=== PATIENT | female | born 1965 | race American Indian/Alaskan Native ===

== ENCOUNTER 2020-07-03 17:19 | Emergency (ER) | payer BC ==
[~2020-07-03] VITALS: Ht 157.5 cm; Wt 79.4 kg
--- NOTE | 2020-07-03 17:19 | NUR ---
PTLEFT SIDED CHEST PAIN RADIATING TO LEFT ARM SINCE 1499. PT IS AAOX4, NOT IN RESPIRATORY DISTRESS, HOOKED TO [facility], KEPT RESTED AND COMFORTABLE. WILL CONTINUE TO MONITOR.
--- NOTE | 2020-07-03 17:35 | NUR ---
IV LINE ESTABLISHED BLOOD DRAWN AND SENT TO LAB.
[2020-07-03 17:51] LABS: BASOPHILS % (AUTO) 0.4 % (0.0-2.0); EOSINOPHILS % (AUTO) 0.8 % (0.0-6.0); HEMATOCRIT 42 % (33-45); HEMOGLOBIN 14.4 g/dL (11.5-14.8); LYMPHOCYTES # (AUTO) 1.2 /CMM (0.8-4.8); LYMPHOCYTES % (AUTO) 13.4 % (20.0-44.0); MEAN CORPUSCULAR HGB CONC 35 g/dl (31.0-36.0); MEAN CORPUSCULAR VOLUME 88 fL (82-100); MONOCYTES # (AUTO) 0.6 /CMM (0.1-1.30); MONOCYTES % (AUTO) 6.4 % (2.0-12.0); PLATELET COUNT (AUTO) 288 /CMM (150-450); RED BLOOD CELL COUNT(AUTO) 4.74 MIL/uL (4.0-5.2); WHITE BLOOD COUNT (AUTO) 8.9 K/uL (4.3-11.0)
--- NOTE | 2020-07-03 18:24 | NUR ---
URINE SAMPLE COLLECTED AND SENT TO LAB
[2020-07-03 18:38] LABS: BILIRUBIN,URINE Negative (NEGATIVE); COLOR,URINE YELLOW (YELLOW); LEUKOCYTE ESTERASE ,URINE Negative (NEGATIVE); NITRITE, URINE Negative (NEGATIVE); PH,URINE 5.5 (5.0-8.0); PROTEIN,URINE Negative (NEGATIVE); UGLUCOSE Negative (NEGATIVE); UROBILINOGEN,URINE 0.2 EU/dL (0.2)
[2020-07-03 18:44] LABS: BACTERIA,URINE Few /HPF (None Seen); SQUAMOUS EPITHELIAL CELL,UR Few /HPF (None Seen); WBC,URINE 0-2 /HPF (0-3)
[2020-07-03 18:55] LABS: ALBUMIN 4.4 g/dL (3.4-5.0); BILIRUBIN,TOTAL 0.4 mg/dL (0.2-1.0)
[2020-07-03 18:56] LABS: CALCIUM, SERUM 9.1 mg/dL (8.5-10.1); CARBON DIOXIDE 27 mmol/L (21-32); CHLORIDE 100 mmol/L (98-107); GLUCOSE 134 mg/dL (74-106); POTASSIUM 3.6 mmol/L (3.5-5.1); SODIUM SERUM 136 mmol/L (136-145)
[2020-07-03 18:57] LABS: CREATININE 1.1 mg/dL (0.6-1.3); UREA NITROGEN, BLOOD 22 mg/dL (7-18)
--- NOTE | 2020-07-03 19:27 | NUR ---
REPORT GIVEN TO EKATERINA HESS FOR CRISTIN.
--- NOTE | 2020-07-03 19:47 | NUR ---
PT RESTING COMFORTABLY. VSS. DENIES CP AT THIS TIME. WILL CONTINUE TO MONITOR.
--- NOTE | 2020-07-03 21:16 | NUR ---
IV removed. Catheter intact and site benign. Pressure and 4x4 applied to site. No bleeding noted.
[2020-07-03 21:17] VITALS: BP 129/82
--- NOTE | 2020-07-03 21:17 | NUR ---
Patient discharged to home in stable condition. Written and verbal after care instructions given. Patient verbalizes understanding of instruction and RX. Pt denies CP, VSS.
== END 2020-07-03 21:19 | disposition home or self-care (01) ==
LOC: ER 17:19
DX: R07.89 Other chest pain (principal); R19.7 Diarrhea, unspecified; I10 Essential (primary) hypertension
CPT/HCPCS: 36415; 71045-TC; 80048-TC; 80076-TC; 81001; 83690-TC; 84484-TC; 84703-TC; 85025-TC

== ENCOUNTER 2020-08-25 00:34 | Emergency (ER) | payer BC ==
[~2020-08-25] VITALS: Ht 167.6 cm; Wt 81.6 kg
[2020-08-25 01:40] VITALS: BP 169/105
== END 2020-08-25 02:07 | disposition home or self-care (01) ==
LOC: ER 00:35
DX: F41.9 Anxiety disorder, unspecified (principal); I10 Essential (primary) hypertension

== ENCOUNTER 2023-03-16 11:12 | Emergency (ER) | payer BC ==
[~2023-03-16] VITALS: Ht 162.6 cm; Wt 77.1 kg
[2023-03-16 12:26] LABS: BASOPHILS % (AUTO) 0.6 % (0.0-2.0); HEMATOCRIT 41 % (33-45); HEMOGLOBIN 13.8 g/dL (11.5-14.8); LYMPHOCYTES # (AUTO) 1.6 K/uL (0.8-4.8); LYMPHOCYTES % (AUTO) 33.8 % (20.0-44.0); MEAN CORPUSCULAR HEMOGLOBIN 29 PG (26.0-33.0); MEAN CORPUSCULAR HGB CONC 34 g/dl (31.0-36.0); MEAN CORPUSCULAR VOLUME 87 fL (82-100); MONOCYTES # (AUTO) 0.3 K/uL (0.1-1.30); MONOCYTES % (AUTO) 6.3 % (2.0-12.0); NEUTROPHILS # (AUTO) 2.7 K/uL (1.8-8.9); NEUTROPHILS % (AUTO) 58.3 % (43.0-81.0); PLATELET COUNT (AUTO) 241 K/uL (150-450); RED BLOOD CELL COUNT(AUTO) 4.69 MIL/uL (4.0-5.2); RED CELL DISTRIBUTION WIDTH 12.9 % (11.5-15.0); WHITE BLOOD COUNT (AUTO) 4.7 K/uL (4.3-11.0)
[2023-03-16 12:46] LABS: CALCIUM, SERUM 8.5 mg/dL (8.5-10.1); CREATININE 0.9 mg/dL (0.6-1.3); POTASSIUM 3.8 mmol/L (3.5-5.1)
[2023-03-16 14:01] VITALS: BP 135/85; TEMP 98.5; O2SAT 100
== END 2023-03-16 13:58 | disposition home or self-care (01) ==
LOC: ER 11:26
DX: N95.0 Postmenopausal bleeding (principal); I10 Essential (primary) hypertension
CPT/HCPCS: 36415; 76856-TC; 80048-TC; 85025-TC

== ENCOUNTER 2023-07-26 22:22 | Emergency (ER) | payer BC ==
[~2023-07-26] VITALS: Ht 167.6 cm; Wt 82.6 kg
[2023-07-26 22:37] VITALS: TEMP 97.8
[2023-07-26] MEDS ORDERED: KETOROLAC TROMETHAMINE INJ 30 MG/ML VIAL ONE (22:50)
[2023-07-26] MEDS: KETOROLAC TROMETHAMINE INJ 60 MG/2 ML VIAL IM ONE (22:56)
[2023-07-27 00:53] VITALS: BP 156/70; O2SAT 100
== END 2023-07-27 00:53 | disposition home or self-care (01) ==
LOC: ER 22:24
DX: S13.9XXA Sprain of joints and ligaments of unspecified parts of neck, initial encounter (principal); S33.5XXA Sprain of ligaments of lumbar spine, initial encounter; M25.562 Pain in left knee; I10 Essential (primary) hypertension; V49.9XXA Car occupant (driver) (passenger) injured in unspecified traffic accident, initial encounter; Y93.89 Activity, other specified; Y92.89 Other specified places as the place of occurrence of the external cause; Y99.8 Other external cause status
CPT/HCPCS: 99285; 72125; 96372; 73564; 70450; 72131; 72128; J1885